=== PATIENT | male | born 1985 | race Caucasian/White ===

== ENCOUNTER 2021-04-20 09:12 | Day surgery (SDC) | payer BC ==
[~2021-04-20] VITALS: Ht 198.1 cm; Wt 147.4 kg
[2021-04-20] MEDS ORDERED: ceFAZolin 1GM/50ML 150 ML IV ONE (09:23)
[2021-04-20] MEDS ORDERED: BUPIVACAINE 0.5% MPF INJ 30ML SDV IJ ONE (09:57)
[2021-04-20] MEDS ORDERED: fentaNYL CITRATE 5 ML ONE (10:16)
[2021-04-20] MEDS ORDERED: ROCURONIUM 10MG/ML 10ML VIAL IV ONE (10:16)
[2021-04-20] MEDS ORDERED: MIDAZOLAM HCL 2MG/2ML 2ml VIAL (1mg/ml) ONE (10:17)
[2021-04-20] MEDS ORDERED: LIDOCAINE 2% (LOCAL ANESTH.) PF 5ml SDV ONE (10:21)
[2021-04-20] MEDS ORDERED: PROPOFOL 10 MG/ML 20 ML IV ONE (10:21)
[2021-04-20] MEDS ORDERED: ONDANSETRON HCL 4 MG/2 ML VIAL ONE ×2 (10:21→12:25)
[2021-04-20] MEDS ORDERED: HYDROmorphone HCL 2 MG/ML VL ONE ×2 (10:49→12:29)
[2021-04-20] MEDS ORDERED: VANCOMYCIN HCL 1000 MG VL ONE (10:51)
[2021-04-20] MEDS ORDERED: ONDANSETRON HCL 4 MG/2 ML VIAL IV PRN (12:30)
[2021-04-20] MEDS ORDERED: METOCLOPRAMIDE HCL 5MG/ml INJ 2ml VIAL IV PRN (12:30)
[2021-04-20] MEDS: HYDROmorphone HCL 2 MG/ML VL IV PRN ×2 (12:33→12:55)
[2021-04-20 13:20] VITALS: BP 137/71
== END 2021-04-20 13:45 | disposition home or self-care (01) ==
LOC: SUR 09:12
PROVIDERS: ATTEND Orthopaedic Surgery Sports Medicine
DX: S83.511A Sprain of anterior cruciate ligament of right knee, initial encounter (principal); Z68.37 Body mass index [BMI] 37.0-37.9, adult; Z20.822 Contact with and (suspected) exposure to COVID-19; X58.XXXA Exposure to other specified factors, initial encounter; Y93.89 Activity, other specified; Y92.89 Other specified places as the place of occurrence of the external cause; Y99.8 Other external cause status; M23.261 Derangement of other lateral meniscus due to old tear or injury, right knee
CPT/HCPCS: 29883; 29888; C1713; C1762; J0690; J1170; J2001; J2250; J2405; J2704; J2765; J3010; J3370; J3490; U0003